=== PATIENT | female | born 1955 | race Caucasian/White ===

== ENCOUNTER → 2017-12-15 | Outpatient (CLI) | payer BC ==
--- NOTE | 2017-12-15 08:27 | US ---
EXAMINATION TYPE: US abdomen complete DATE OF EXAM: 12/15/2017 COMPARISON: NONE CLINICAL HISTORY: R10.11 right upper quadrant pain. prior bariatric sx EXAM MEASUREMENTS: Liver Length: 17.8 cm Gallbladder Wall: 0.3 cm CBD: 0.5 cm Spleen: 8.4 cm Right Kidney: 9.9 x 3.8 x 4.6 cm. Slight cortical renal thinning on the right within the mid pole an d may be sequela of prior injury. Left Kidney: 10.8 x 5.1 x 4.9 cm Pancreas: Obscured by bowel gas Liver: upper limits in size Gallbladder: wnl Evidence for sonographic Ashton's sign: no CBD: wnl Spleen: wnl Right Kidney: wnl Left Kidney: wnl Upper IVC: wnl Abd Aorta: wnl The liver is homogenous. The intrahepatic portion of the IVC and proximal abdominal aorta are within normal limits. There is no evidence of cholelithiasis. Common bile duct is unremarkable. The visu alized portions of the pancreas are homogenous. The spleen is unremarkable. Kidneys are symmetric a nd free of hydronephrosis. No renal lesions are seen. IMPRESSION: 1. No sonographic evidence of acute cholecystitis or cholelithiasis. 2. Right midpole cortical renal thinning that may be sequela of prior injury. No hydronephrosis or ne phrolithiasis. 3. Nonvisualization of the pancreas as it is obscured by bowel gas.
== END | disposition home or self-care (01) ==
LOC: RADUSWWP 07:34
PROVIDERS: ATTEND Internal Medicine
DX: N28.89 Other specified disorders of kidney and ureter (principal)
CPT/HCPCS: 76700

== ENCOUNTER → 2019-11-05 | Outpatient (CLI) | payer BC | END | disposition home or self-care (01) | LOC: LABWHC1 14:30 | PROVIDERS: ATTEND Internal Medicine | DX: U07.1 COVID-19 (principal) ==